=== PATIENT | female | born 1970 | race Caucasian/White ===

== ENCOUNTER 2021-08-12 10:09 | Outpatient (CLI) | payer OTHER, SELFPAY ==
[2021-08-12 11:14] LABS: SARS-CoV-2 RNA PCR Positive (Negative)
== END 2021-08-12 10:10 | disposition home or self-care (01) ==
LOC: CHSLAB 10:17
PROVIDERS: PCP Internal Medicine; Visit Provider Physician Assistant
DX: U07.1 COVID-19 (principal); J02.9 Acute pharyngitis, unspecified
CPT/HCPCS: C9803; U0003; U0005